=== PATIENT | male | born 1965 | race Caucasian/White ===

== ENCOUNTER → 2017-03-17 | Outpatient (CLI) | payer BC ==
[~2017-03-17] MED LIST: ACETAMINOPHEN-H1 TA2 PO; AMOXICILLIN500 MG PO; AMOXIL500 MG PO; BACTRIM DS 8001 TA1 PO; CATAFLAM50 MG PO; CEFUROXIME AXE250 MG PO; CILOXAN 5 ML5 M1 OT; CILOXAN 5 ML5 ML OT; CIPRO500 MG PO; CIPRODEX 0.3%-7.5 ML OT; CLARITIN10 MG PO; DAYPRO600 M1 PO; FIORICET 325 MG1 TAB PO; FLEXERIL10 MG PO; FLOMAX0.4 MG PO; HYDROCODONE BIT1 T11 PO; IBUPROFEN 30 M800 MG PO; KEFLEX500 MG PO; LISINOPRIL20 MG PO; MAGNESIUM OXID500 MG PO; MOTRIN800 MG PO; NAPROSYN500 MG PO; PROPRANOLOL10 MG PO; PROVENTIL0.09 MG/AC IH; ROBAXIN750 MG PO; SUDAFED60 MG PO; TOPAMAX2 MG; TOPAMAX25 M1 PO; TOPAMAX25 M3 PO; TRAMADOL50 MG PO; TRIMOX500 MG PO; VIBRAMYCIN100 MG PO; VITAMIN B2100 MG PO; ZANTAC 150150 MG PO; ZITHROMAX Z PA250 MG PO; ZYRTEC10 M1 PO; ZYRTEC10 MG PO
== END | disposition home or self-care (01) ==
LOC: RAD 17:07
DX: M79.671 Pain in right foot (principal)

== ENCOUNTER 2017-09-13 20:43 | Emergency (ER) | payer BC ==
[~2017-09-13] VITALS: Ht 175.2 cm; Wt 72.6 kg
[2017-09-13] MEDS ORDERED: MOBIC15 MG PO (20:45)
[2017-09-13 21:10] LABS: BASO # 0.1 10*3/uL (0.0-0.1); BASO % 0.5 % (0.0-1.0); EOS # 0.6 10*3/uL (0.0-0.4); EOS % 6.1 % (1.0-4.0); HEMATOCRIT 47.2 % (42.0-52.0); HEMOGLOBIN 16.3 g/dl (14.0-18.0); LYMPH # 2.6 10*3/uL (1.3-4.4); LYMPH % 27.8 % (27.0-41.0); MEAN CELL VOLUME 90.2 fl (80.0-94.0); MEAN CORPUSCULAR HGB 31.2 pg (27.0-31.0); MEAN CORPUSCULAR HGB CONC 34.5 g/dl (33.0-37.0); MEAN PLATELET VOLUME 9.6 fl (9.6-12.3); MONO # 0.9 10*3/uL (0.1-1.0); MONO % 9.2 % (3.0-9.0); NEUT # 5.3 10*3/uL (2.3-7.9); NEUT % 56.2 % (47.0-73.0); PLATELET COUNT AUTOMATED 198 10*3/uL (130-400); RED BLOOD COUNT 5.23 10*6/uL (4.50-5.90); RED CELL DISTRI WIDTH 13.2 % (0-14.5); WHITE BLOOD COUNT 9.4 10*3/uL (4.8-10.8)
[2017-09-13 21:25] LABS: ALBUMIN 3.7 gm/dl (3.1-4.5); ALKALINE PHOSPHATASE 90 U/L (45-117); BUN 28 mg/dl (7-24); CHLORIDE 107 mmol/L (98-107); CREATININE 1.33 mg/dL (0.70-1.30); SGOT/AST 21 IU/L (3-35); SGPT/ALT 33 U/L (12-78); SODIUM 140 mmol/L (136-145); TOTAL PROTEIN 6.8 gm/dL (6.4-8.2)
[2017-09-13 21:27] LABS: BILIRUBIN NEGATIVE (NEGATIVE); BLOOD 3+ (NEGATIVE); CLARITY CLOUDY (CLEAR); COLOR YELLOW (YELLOW); GLUCOSE NEGATIVE (NEGATIVE); KETONE NEGATIVE (NEGATIVE); LEUKO ESTERASE NEGATIVE (NEGATIVE); NITRITE NEGATIVE (NEGATIVE); UROBILINOGEN 0.2 E.U./dl (0.2-1.0)
[2017-09-13 21:45] LABS: BACTERIA 2+; EPITHELIAL CELLS 0-2; RBC TNTC rbc/hpf (0-2)
[2017-09-13] MEDS ORDERED: SEPTDS PO (22:51)
[2017-09-13] MEDS ORDERED: KETOROLAC10 MG PO (22:51)
== END 2017-09-13 22:59 | disposition home or self-care (01) ==
LOC: ED 20:43
PROVIDERS: Student in an Organized Health Care Education/Training Program
DX: N20.1 Calculus of ureter (principal); E78.5 Hyperlipidemia, unspecified; I10 Essential (primary) hypertension; G43.909 Migraine, unspecified, not intractable, without status migrainosus; F17.200 Nicotine dependence, unspecified, uncomplicated; Z88.8 Allergy status to other drugs, medicaments and biological substances; Z79.899 Other long term (current) drug therapy

== ENCOUNTER → 2017-09-16 | Outpatient (CLI) | payer BC ==
[~2017-09-16] MED LIST changes: +KETOROLAC10 MG PO; +MOBIC15 MG PO; +SEPTDS PO
[2017-09-16 11:53] LABS: BILIRUBIN NEGATIVE (NEGATIVE); BLOOD 2+ (NEGATIVE); CLARITY CLEAR (CLEAR); COLOR YELLOW (YELLOW); GLUCOSE NEGATIVE (NEGATIVE); KETONE NEGATIVE (NEGATIVE); LEUKO ESTERASE NEGATIVE (NEGATIVE); NITRITE NEGATIVE (NEGATIVE); SPECIFIC GRAVITY <= 1.005 (1.005-1.030); UROBILINOGEN 0.2 E.U./dl (0.2-1.0)
[2017-09-16 12:11] LABS: BACTERIA TRACE
[2017-09-16 12:22] LABS: ALBUMIN 3.7 gm/dl (3.1-4.5); ALKALINE PHOSPHATASE 93 U/L (45-117); BUN 15 mg/dl (7-24); CHLORIDE 108 mmol/L (98-107); CREATININE 0.94 mg/dL (0.70-1.30); POTASSIUM 4.2 mmol/L (3.5-5.1); SGOT/AST 22 IU/L (3-35); SGPT/ALT 33 U/L (12-78); SODIUM 139 mmol/L (136-145); T3 UPTAKE 31 % (31-39); THYROXINE (T4) TOTAL 9.3 ug/dl (4.5-12.1); TOTAL PROTEIN 7.2 gm/dL (6.4-8.2)
== END | disposition home or self-care (01) ==
LOC: LAB 11:22
PROVIDERS: Urology
DX: E83.50 Unspecified disorder of calcium metabolism (principal)

== ENCOUNTER → 2017-09-21 | Outpatient (CLI) | payer BC | END | disposition home or self-care (01) | LOC: US 02:10 | DX: N13.30 Unspecified hydronephrosis (principal) ==

== ENCOUNTER → 2017-09-29 | Outpatient (CLI) | payer BC | END | disposition home or self-care (01) | LOC: LAB 10:13 | PROVIDERS: Urology | DX: E83.50 Unspecified disorder of calcium metabolism (principal) ==

== ENCOUNTER → 2017-10-03 | Outpatient (CLI) | payer BC | END | disposition home or self-care (01) | LOC: LAB 14:39 | DX: D40.0 Neoplasm of uncertain behavior of prostate (principal) ==

== ENCOUNTER → 2017-10-22 | Outpatient (CLI) | payer BC | END | disposition home or self-care (01) | LOC: US 16:16 | DX: N13.30 Unspecified hydronephrosis (principal); N20.0 Calculus of kidney ==

== ENCOUNTER 2017-11-14 23:39 | Emergency (ER) | payer BC ==
[~2017-11-14] VITALS: Ht 175.2 cm; Wt 72.6 kg
[2017-11-14 23:55] LABS: BILIRUBIN NEGATIVE (NEGATIVE); BLOOD 2+ (NEGATIVE); CLARITY CLEAR (CLEAR); COLOR YELLOW (YELLOW); GLUCOSE NEGATIVE (NEGATIVE); KETONE NEGATIVE (NEGATIVE); LEUKO ESTERASE NEGATIVE (NEGATIVE); NITRITE NEGATIVE (NEGATIVE); PH 5.5 (5.0-9.0); SPECIFIC GRAVITY 1.025 (1.005-1.030); UROBILINOGEN 0.2 E.U./dl (0.2-1.0)
[2017-11-15 00:08] LABS: RBC 21-30 rbc/hpf (0-2)
[2017-11-15 00:32] LABS: BASO # 0.1 10*3/uL (0.0-0.1); BASO % 0.4 % (0.0-1.0); EOS # 0.4 10*3/uL (0.0-0.4); EOS % 2.6 % (1.0-4.0); HEMOGLOBIN 15.7 g/dl (14.0-18.0); LYMPH # 1.4 10*3/uL (1.3-4.4); LYMPH % 9.9 % (27.0-41.0); MEAN CELL VOLUME 91.4 fl (80.0-94.0); MEAN CORPUSCULAR HGB 30.5 pg (27.0-31.0); MEAN CORPUSCULAR HGB CONC 33.4 g/dl (33.0-37.0); MEAN PLATELET VOLUME 9.5 fl (9.6-12.3); MONO % 7.1 % (3.0-9.0); NEUT # 11.1 10*3/uL (2.3-7.9); NEUT % 79.6 % (47.0-73.0); PLATELET COUNT AUTOMATED 168 10*3/uL (130-400); RED BLOOD COUNT 5.14 10*6/uL (4.50-5.90); RED CELL DISTRI WIDTH 13.1 % (0-14.5); WHITE BLOOD COUNT 13.9 10*3/uL (4.8-10.8)
[2017-11-15 01:03] LABS: ALBUMIN 3.8 gm/dl (3.1-4.5); BUN 26 mg/dl (7-24); CHLORIDE 109 mmol/L (98-107); CREATININE 1.34 mg/dL (0.70-1.30); POTASSIUM 4.1 mmol/L (3.5-5.1); SGOT/AST 14 IU/L (3-35); SGPT/ALT 19 U/L (12-78); SODIUM 140 mmol/L (136-145)
[2017-11-15 01:05] LABS: ALKALINE PHOSPHATASE 82 U/L (45-117); TOTAL PROTEIN 6.8 gm/dL (6.4-8.2)
== END 2017-11-15 03:10 | disposition short-term general hospital (02) ==
LOC: ED 23:39
PROVIDERS: Emergency Medicine
DX: N13.8 Other obstructive and reflux uropathy (principal); N13.30 Unspecified hydronephrosis; E78.5 Hyperlipidemia, unspecified; I10 Essential (primary) hypertension; G43.909 Migraine, unspecified, not intractable, without status migrainosus; F17.200 Nicotine dependence, unspecified, uncomplicated; Z88.8 Allergy status to other drugs, medicaments and biological substances; Z79.899 Other long term (current) drug therapy; Z87.442 Personal history of urinary calculi

== ENCOUNTER → 2017-12-08 | Outpatient (CLI) | payer BC ==
[2017-12-08 16:52] LABS: BASO % 0.3 % (0.0-1.0); BILIRUBIN 1+ (NEGATIVE); BLOOD 3+ (NEGATIVE); CLARITY CLOUDY (CLEAR); EOS # 0.5 10*3/uL (0.0-0.4); EOS % 4.3 % (1.0-4.0); GLUCOSE NEGATIVE (NEGATIVE); HEMATOCRIT 41.5 % (42.0-52.0); HEMOGLOBIN 14.1 g/dl (14.0-18.0); KETONE NEGATIVE (NEGATIVE); LEUKO ESTERASE 2+ (NEGATIVE); LYMPH % 17.6 % (27.0-41.0); MEAN CELL VOLUME 90.2 fl (80.0-94.0); MEAN CORPUSCULAR HGB 30.7 pg (27.0-31.0); MEAN PLATELET VOLUME 9.5 fl (9.6-12.3); MONO # 0.7 10*3/uL (0.1-1.0); MONO % 6.3 % (3.0-9.0); NEUT # 8.2 10*3/uL (2.3-7.9); NEUT % 71.2 % (47.0-73.0); NITRITE POSITIVE (NEGATIVE); PH 6.5 (5.0-9.0); PLATELET COUNT AUTOMATED 249 10*3/uL (130-400); WHITE BLOOD COUNT 11.6 10*3/uL (4.8-10.8)
[2017-12-08 17:01] LABS: COLOR BROWN (YELLOW); RBC TNTC rbc/hpf (0-2)
[2017-12-08 17:29] LABS: ALBUMIN 3.9 gm/dl (3.1-4.5); ALKALINE PHOSPHATASE 86 U/L (45-117); BUN 27 mg/dl (7-24); CHLORIDE 107 mmol/L (98-107); CREATININE 1.36 mg/dL (0.70-1.30); POTASSIUM 3.9 mmol/L (3.5-5.1); SGOT/AST 28 IU/L (3-35); SGPT/ALT 30 U/L (12-78); SODIUM 139 mmol/L (136-145); THYROXINE (T4) TOTAL 10.2 ug/dl (4.5-12.1); TOTAL PROTEIN 7.2 gm/dL (6.4-8.2)
[2017-12-08 17:31] LABS: T3 UPTAKE 30 % (31-39)
== END | disposition home or self-care (01) ==
LOC: LAB 16:26
PROVIDERS: Urology
DX: N20.0 Calculus of kidney (principal); N20.1 Calculus of ureter; Z96.0 Presence of urogenital implants; Z79.899 Other long term (current) drug therapy

== ENCOUNTER 2018-01-17 20:24 | Emergency (ER) | payer BC, MEDICAID ==
[~2018-01-17] VITALS: Ht 175.2 cm; Wt 72.6 kg
[2018-01-17 21:03] LABS: BASO % 0.4 % (0.0-1.0); EOS # 0.4 10*3/uL (0.0-0.4); EOS % 4.6 % (1.0-4.0); HEMATOCRIT 42.6 % (42.0-52.0); HEMOGLOBIN 14.3 g/dl (14.0-18.0); LYMPH # 2.1 10*3/uL (1.3-4.4); LYMPH % 21.5 % (27.0-41.0); MEAN CELL VOLUME 92.2 fl (80.0-94.0); MEAN CORPUSCULAR HGB CONC 33.6 g/dl (33.0-37.0); MEAN PLATELET VOLUME 9.5 fl (9.6-12.3); MONO # 0.6 10*3/uL (0.1-1.0); MONO % 6.5 % (3.0-9.0); NEUT # 6.3 10*3/uL (2.3-7.9); NEUT % 66.5 % (47.0-73.0); PLATELET COUNT AUTOMATED 238 10*3/uL (130-400); RED BLOOD COUNT 4.62 10*6/uL (4.50-5.90); RED CELL DISTRI WIDTH 13.6 % (0-14.5); WHITE BLOOD COUNT 9.5 10*3/uL (4.8-10.8)
[2018-01-17 21:11] LABS: BILIRUBIN NEGATIVE (NEGATIVE); BLOOD 3+ (NEGATIVE); CLARITY CLOUDY (CLEAR); COLOR YELLOW (YELLOW); GLUCOSE NEGATIVE (NEGATIVE); KETONE NEGATIVE (NEGATIVE); LEUKO ESTERASE 1+ (NEGATIVE); NITRITE POSITIVE (NEGATIVE); SPECIFIC GRAVITY 1.015 (1.005-1.030); UROBILINOGEN 0.2 E.U./dl (0.2-1.0)
[2018-01-17 21:24] LABS: BACTERIA TRACE; RBC TNTC rbc/hpf (0-2); WBC 0-2 wbc/hpf (0-5)
[2018-01-17 21:29] LABS: ALBUMIN 3.7 gm/dl (3.1-4.5); BUN 20 mg/dl (7-24); CHLORIDE 109 mmol/L (98-107); CREATININE 1.09 mg/dL (0.70-1.30); SGOT/AST 21 IU/L (3-35); SGPT/ALT 40 U/L (12-78); SODIUM 140 mmol/L (136-145)
[2018-01-17 21:36] LABS: ALKALINE PHOSPHATASE 75 U/L (45-117)
[2018-01-17] MEDS ORDERED: OMNICEF300 MG PO (22:13)
== END 2018-01-17 22:49 | disposition home or self-care (01) ==
LOC: ED 20:24
PROVIDERS: Physician Assistant
DX: N20.0 Calculus of kidney (principal); F17.200 Nicotine dependence, unspecified, uncomplicated; Z88.8 Allergy status to other drugs, medicaments and biological substances; Z79.899 Other long term (current) drug therapy

== ENCOUNTER → 2018-02-15 | Outpatient (CLI) | payer BC ==
[~2018-02-15] MED LIST changes: +OMNICEF300 MG PO
== END | disposition home or self-care (01) ==
LOC: US 13:54
DX: N13.30 Unspecified hydronephrosis (principal); N20.0 Calculus of kidney

== ENCOUNTER → 2018-07-15 | Day surgery (SDC) | payer OTHER ==
[~2018-07-15] MED LIST changes: +CEFADROXIL500 M1 PO; +MUCINEX DM 30/61 TAB PO; +Motrin,Rufen800 MG PO; +ZITHROMAX250 MG PO
== END | disposition home or self-care (01) ==
LOC: SDC 07-13 08:00
DX: Z12.11 Encounter for screening for malignant neoplasm of colon (principal); Z53.8 Procedure and treatment not carried out for other reasons

== ENCOUNTER 2018-07-23 20:42 | Emergency (ER) | payer OTHER ==
[~2018-07-23] VITALS: Ht 175.2 cm; Wt 72.6 kg
[~2018-07-23 20:42] MED LIST changes: -CEFADROXIL500 M1 PO; -MUCINEX DM 30/61 TAB PO; -Motrin,Rufen800 MG PO; -ZITHROMAX250 MG PO
[2018-07-23] MEDS ORDERED: Motrin,Rufen800 MG PO (21:42)
[2018-07-23] MEDS ORDERED: CEFADROXIL500 M1 PO (21:42)
== END 2018-07-23 22:00 | disposition home or self-care (01) ==
LOC: ED 20:42
DX: L03.012 Cellulitis of left finger (principal); F17.200 Nicotine dependence, unspecified, uncomplicated; Z79.899 Other long term (current) drug therapy; Z88.8 Allergy status to other drugs, medicaments and biological substances

== ENCOUNTER 2018-07-31 12:24 | Emergency (ER) | payer OTHER ==
[~2018-07-31] VITALS: Wt 86.2 kg
[~2018-07-31 12:24] MED LIST changes: +CEFADROXIL500 M1 PO; +Motrin,Rufen800 MG PO
[2018-07-31] MEDS ORDERED: MUCINEX DM 30/61 TAB PO (12:59)
== END 2018-07-31 14:02 | disposition home or self-care (01) ==
LOC: ED 12:24
DX: J06.9 Acute upper respiratory infection, unspecified (principal); G43.909 Migraine, unspecified, not intractable, without status migrainosus; E78.5 Hyperlipidemia, unspecified; I10 Essential (primary) hypertension; F17.200 Nicotine dependence, unspecified, uncomplicated; Z88.8 Allergy status to other drugs, medicaments and biological substances; Z79.899 Other long term (current) drug therapy

== ENCOUNTER 2018-08-09 12:07 | Emergency (ER) | payer OTHER ==
[~2018-08-09] VITALS: Ht 175.2 cm; Wt 72.6 kg
[~2018-08-09 12:07] MED LIST changes: +MUCINEX DM 30/61 TAB PO
[2018-08-09] MEDS ORDERED: ZITHROMAX250 MG PO (12:25)
== END 2018-08-09 12:35 | disposition home or self-care (01) ==
LOC: ED 12:07
DX: J32.9 Chronic sinusitis, unspecified (principal); F17.200 Nicotine dependence, unspecified, uncomplicated; Z88.8 Allergy status to other drugs, medicaments and biological substances; Z79.899 Other long term (current) drug therapy

== ENCOUNTER → 2018-12-25 | Outpatient (CLI) | payer OTHER ==
[~2018-12-25] MED LIST changes: +PROAIR HFA8.5 GM INH; +ROBITUSSIN DM 105 ML PO; +ZITHROMAX250 MG PO
[2018-12-25 08:38] LABS: BASO % 0.3 % (0.0-1.0); EOS # 0.2 10*3/uL (0.0-0.4); EOS % 2.9 % (1.0-4.0); HEMATOCRIT 49.2 % (42.0-52.0); HEMOGLOBIN 16.6 g/dl (14.0-18.0); LYMPH # 1.4 10*3/uL (1.3-4.4); MEAN CELL VOLUME 92.5 fl (80.0-94.0); MEAN CORPUSCULAR HGB 31.2 pg (27.0-31.0); MEAN CORPUSCULAR HGB CONC 33.7 g/dl (33.0-37.0); MEAN PLATELET VOLUME 9.5 fl (9.6-12.3); MONO # 0.6 10*3/uL (0.1-1.0); MONO % 9.6 % (3.0-9.0); NEUT # 4.2 10*3/uL (2.3-7.9); NEUT % 64.6 % (47.0-73.0); PLATELET COUNT AUTOMATED 203 10*3/uL (130-400); RED BLOOD COUNT 5.32 10*6/uL (4.50-5.90); RED CELL DISTRI WIDTH 12.8 % (0-14.5); WHITE BLOOD COUNT 6.6 10*3/uL (4.8-10.8)
[2018-12-25 09:08] LABS: ALBUMIN 4.4 gm/dl (3.1-4.5); ALKALINE PHOSPHATASE 77 U/L (45-117); BUN 27 mg/dl (7-24); CHLORIDE 108 mmol/L (98-107); CHOLESTEROL 161 mg/dL (<200); HDL CHOLESTEROL 43 mg/dl (40-60); LDL CHOLESTEROL 101 mg/dL (9-159); POTASSIUM 4.3 mmol/L (3.5-5.1); SGOT/AST 9 IU/L (3-35); SGPT/ALT 20 U/L (12-78); SODIUM 139 mmol/L (136-145); TOTAL PROTEIN 7.6 gm/dL (6.4-8.2); TRIGLYCERIDES 87 mg/dl (<150); VLDL CHOLESTEROL 17 mg/dL (6-40)
== END | disposition home or self-care (01) ==
LOC: LAB 08:15
PROVIDERS: Nurse Practitioner Family
DX: I10 Essential (primary) hypertension (principal); E78.2 Mixed hyperlipidemia; R73.03 Prediabetes

== ENCOUNTER 2019-01-08 18:57 | Emergency (ER) | payer OTHER ==
[~2019-01-08] VITALS: Ht 175.2 cm; Wt 77.1 kg
--- NOTE | ~2019-01-08 | EKG ---
[place], [place] ELECTROCARDIOGRAM REPORT NAME: DEION MILLER III UNIT #: [id number] ROOM: DOCTOR: EPIPHANY DRAFT REPORT BIRTHDATE: [birth year] [facility] Test Date: 2019-01-08 Test Time: 19:52:01 Pat Name: DEION MILLER Department: Room: Gender: Corporate Planning Manager: Danuta Tsai : 1965 Requested By: LORENZO ESPOSITO Order Number: [id number] Reading MD: Mohinder Sandoval MD Measurements Intervals [place] Rate: 81 P: 44 NE: 175 QRS: 99 QRSD: 96 T: 28 QT: 364 QTc: 423 Interpretive Statements Sinus rhythm Borderline right axis deviation Borderline low voltage, extremity leads Anteroseptal infarct, old Minimal ST elevation, inferior leads No previous ECG available for comparison Electronically Signed On 01-09-2019 7:47:50 PDT by Mohinder Sandoval MD CM:EKGRPT:ELECTROCARDIOGRAM REPORT 51 6 LORENZO ESPOSITO EPIPHANY DRAFT REPORT LORENZO ESPOSITO
[~2019-01-08 18:57] MED LIST changes: -PROAIR HFA8.5 GM INH; -ROBITUSSIN DM 105 ML PO
[2019-01-08] MEDS ORDERED: ROBITUSSIN DM 105 ML PO (19:59)
[2019-01-08] MEDS ORDERED: PROAIR HFA8.5 GM INH (19:59)
[2019-01-08] MEDS ORDERED: ZITHROMAX250 MG PO (19:59)
== END 2019-01-08 20:11 | disposition home or self-care (01) ==
LOC: ED 18:57
DX: J20.9 Acute bronchitis, unspecified (principal); F17.200 Nicotine dependence, unspecified, uncomplicated; Z88.8 Allergy status to other drugs, medicaments and biological substances; Z79.899 Other long term (current) drug therapy

== ENCOUNTER → 2019-03-12 | Outpatient (CLI) | payer OTHER ==
[~2019-03-12] MED LIST changes: +PROAIR HFA8.5 GM INH; +ROBITUSSIN DM 105 ML PO
[2019-03-12 11:10] LABS: HEMATOCRIT 47.9 % (42.0-52.0); HEMOGLOBIN 16.1 g/dl (14.0-18.0); MEAN CELL VOLUME 91.2 fl (80.0-94.0); MEAN CORPUSCULAR HGB 30.7 pg (27.0-31.0); MEAN CORPUSCULAR HGB CONC 33.6 g/dl (33.0-37.0); MEAN PLATELET VOLUME 10.5 fl (9.6-12.3); RED BLOOD COUNT 5.25 10*6/uL (4.50-5.90); RED CELL DISTRI WIDTH 13.2 % (0-14.5); WHITE BLOOD COUNT 6.1 10*3/uL (4.8-10.8)
[2019-03-12 11:21] LABS: ALKALINE PHOSPHATASE 73 U/L (45-117); BUN 32 mg/dl (7-24); CHLORIDE 110 mmol/L (98-107); CHOLESTEROL 143 mg/dL (<200); CREATININE 1.38 mg/dL (0.70-1.30); HDL CHOLESTEROL 38 mg/dl (40-60); LDL CHOLESTEROL 89 mg/dL (9-159); POTASSIUM 3.9 mmol/L (3.5-5.1); SGOT/AST 16 IU/L (3-35); SGPT/ALT 23 U/L (12-78); SODIUM 141 mmol/L (136-145); TOTAL PROTEIN 7.2 gm/dL (6.4-8.2); TRIGLYCERIDES 79 mg/dl (<150); VLDL CHOLESTEROL 16 mg/dL (6-40)
== END | disposition home or self-care (01) ==
LOC: LAB 10:09
PROVIDERS: Nurse Practitioner Family
DX: E78.2 Mixed hyperlipidemia (principal); I10 Essential (primary) hypertension; R73.03 Prediabetes

== ENCOUNTER → 2019-09-23 | Outpatient (CLI) | payer OTHER ==
[2019-09-23 13:45] LABS: BASO # 0.1 10*3/uL (0.0-0.1); BASO % 0.6 % (0.0-1.0); EOS # 0.2 10*3/uL (0.0-0.4); EOS % 2.4 % (1.0-4.0); HEMATOCRIT 49.8 % (42.0-52.0); LYMPH # 2.1 10*3/uL (1.3-4.4); LYMPH % 24.2 % (27.0-41.0); MEAN CELL VOLUME 90.2 fl (80.0-94.0); MEAN CORPUSCULAR HGB 30.6 pg (27.0-31.0); MEAN CORPUSCULAR HGB CONC 33.9 g/dl (33.0-37.0); MEAN PLATELET VOLUME 9.5 fl (9.6-12.3); MONO # 0.7 10*3/uL (0.1-1.0); MONO % 8.6 % (3.0-9.0); NEUT # 5.5 10*3/uL (2.3-7.9); NEUT % 63.9 % (47.0-73.0); PLATELET COUNT AUTOMATED 203 10*3/uL (130-400); RED BLOOD COUNT 5.52 10*6/uL (4.50-5.90); RED CELL DISTRI WIDTH 13.2 % (0-14.5); WHITE BLOOD COUNT 8.6 10*3/uL (4.8-10.8)
[2019-09-23 14:03] LABS: ALKALINE PHOSPHATASE 77 U/L (45-117); BUN 21 mg/dl (7-24); CHLORIDE 108 mmol/L (98-107); SGOT/AST 12 IU/L (3-35); SGPT/ALT 32 U/L (12-78); SODIUM 138 mmol/L (136-145); TOTAL PROTEIN 7.4 gm/dL (6.4-8.2)
== END | disposition home or self-care (01) ==
LOC: CT 13:00 → LAB 13:06
PROVIDERS: Nurse Practitioner Family
DX: Z12.5 Encounter for screening for malignant neoplasm of prostate (principal); N20.0 Calculus of kidney; I10 Essential (primary) hypertension

== ENCOUNTER → 2019-10-20 | Outpatient (CLI) | payer OTHER ==
[2019-10-20 13:02] LABS: BASO % 0.4 % (0.0-1.0); EOS # 0.2 10*3/uL (0.0-0.4); EOS % 1.6 % (1.0-4.0); HEMATOCRIT 48.6 % (42.0-52.0); LYMPH # 1.9 10*3/uL (1.3-4.4); LYMPH % 19.7 % (27.0-41.0); MEAN CELL VOLUME 89.3 fl (80.0-94.0); MEAN CORPUSCULAR HGB 30.5 pg (27.0-31.0); MEAN CORPUSCULAR HGB CONC 34.2 g/dl (33.0-37.0); MEAN PLATELET VOLUME 9.4 fl (9.6-12.3); MONO # 0.7 10*3/uL (0.1-1.0); MONO % 7.1 % (3.0-9.0); NEUT # 6.6 10*3/uL (2.3-7.9); NEUT % 70.8 % (47.0-73.0); PLATELET COUNT AUTOMATED 231 10*3/uL (130-400); RED BLOOD COUNT 5.44 10*6/uL (4.50-5.90); WHITE BLOOD COUNT 9.4 10*3/uL (4.8-10.8)
[2019-10-20 13:16] LABS: BILIRUBIN NEGATIVE (NEGATIVE); BLOOD TRACE-LYSED (NEGATIVE); CLARITY CLEAR (CLEAR); COLOR STRAW (YELLOW); GLUCOSE NEGATIVE (NEGATIVE); KETONE NEGATIVE (NEGATIVE); LEUKO ESTERASE 2+ (NEGATIVE); NITRITE NEGATIVE (NEGATIVE); PH 6.5 (5.0-9.0); SPECIFIC GRAVITY 1.005 (1.005-1.030); UROBILINOGEN 0.2 E.U./dl (0.2-1.0)
[2019-10-20 13:17] LABS: BACTERIA 1+; WBC 16-20 wbc/hpf (0-5)
[2019-10-20 13:18] LABS: ALKALINE PHOSPHATASE 76 U/L (45-117); BUN 32 mg/dl (7-24); CHLORIDE 104 mmol/L (98-107); CREATININE 1.45 mg/dL (0.70-1.30); SGOT/AST 13 IU/L (3-35); SGPT/ALT 40 U/L (12-78); SODIUM 132 mmol/L (136-145); TOTAL PROTEIN 7.8 gm/dL (6.4-8.2)
[2019-10-20 13:21] LABS: T3 UPTAKE 32 % (31-39)
== END | disposition home or self-care (01) ==
LOC: LAB 11:30
PROVIDERS: Urology
DX: N20.0 Calculus of kidney (principal); R31.9 Hematuria, unspecified

== ENCOUNTER → 2019-10-21 | Outpatient (CLI) | payer OTHER | END | disposition home or self-care (01) | LOC: LAB 13:49 | PROVIDERS: Urology | DX: N20.0 Calculus of kidney (principal); R31.9 Hematuria, unspecified ==

== ENCOUNTER 2019-11-19 08:48 | Emergency (ER) | payer OTHER ==
[~2019-11-19] VITALS: Ht 175.2 cm; Wt 74.8 kg
[2019-11-19 09:27] LABS: BASO % 0.2 % (0.0-1.0); EOS % 0.1 % (1.0-4.0); HEMATOCRIT 45.9 % (42.0-52.0); LYMPH # 1.8 10*3/uL (1.3-4.4); LYMPH % 11.2 % (27.0-41.0); MEAN CELL VOLUME 86.9 fl (80.0-94.0); MEAN CORPUSCULAR HGB 29.7 pg (27.0-31.0); MEAN CORPUSCULAR HGB CONC 34.2 g/dl (33.0-37.0); MEAN PLATELET VOLUME 9.3 fl (9.6-12.3); MONO % 5.9 % (3.0-9.0); NEUT # 13.5 10*3/uL (2.3-7.9); NEUT % 82.2 % (47.0-73.0); PLATELET COUNT AUTOMATED 260 10*3/uL (130-400); RED BLOOD COUNT 5.28 10*6/uL (4.50-5.90); RED CELL DISTRI WIDTH 12.9 % (0-14.5); WHITE BLOOD COUNT 16.5 10*3/uL (4.8-10.8)
[2019-11-19 09:42] LABS: ALBUMIN 3.7 gm/dl (3.1-4.5); ALKALINE PHOSPHATASE 76 U/L (45-117); BUN 20 mg/dl (7-24); CHLORIDE 107 mmol/L (98-107); CREATININE 1.07 mg/dL (0.70-1.30); POTASSIUM 3.8 mmol/L (3.5-5.1); SGOT/AST 12 IU/L (3-35); SGPT/ALT 27 U/L (12-78); SODIUM 136 mmol/L (136-145); TOTAL PROTEIN 7.3 gm/dL (6.4-8.2)
== END 2019-11-19 13:29 | disposition home or self-care (01) ==
LOC: ED 08:48
PROVIDERS: Physician Assistant
DX: G43.909 Migraine, unspecified, not intractable, without status migrainosus (principal); Z79.899 Other long term (current) drug therapy

== ENCOUNTER 2019-11-26 23:28 | Emergency (ER) | payer OTHER ==
[~2019-11-26] VITALS: Ht 175.2 cm; Wt 72.6 kg
[2019-11-27 01:03] LABS: BASO % 0.3 % (0.0-1.0); EOS # 0.1 10*3/uL (0.0-0.4); EOS % 0.9 % (1.0-4.0); HEMATOCRIT 47.4 % (42.0-52.0); LYMPH # 1.9 10*3/uL (1.3-4.4); LYMPH % 12.9 % (27.0-41.0); MEAN CELL VOLUME 88.6 fl (80.0-94.0); MEAN CORPUSCULAR HGB 30.5 pg (27.0-31.0); MEAN CORPUSCULAR HGB CONC 34.4 g/dl (33.0-37.0); MEAN PLATELET VOLUME 9.2 fl (9.6-12.3); MONO # 0.9 10*3/uL (0.1-1.0); MONO % 6.3 % (3.0-9.0); NEUT # 11.5 10*3/uL (2.3-7.9); NEUT % 78.9 % (47.0-73.0); PLATELET COUNT AUTOMATED 234 10*3/uL (130-400); RED BLOOD COUNT 5.35 10*6/uL (4.50-5.90); RED CELL DISTRI WIDTH 13.2 % (0-14.5); WHITE BLOOD COUNT 14.5 10*3/uL (4.8-10.8)
[2019-11-27 01:17] LABS: BUN 19 mg/dl (7-24); CHLORIDE 105 mmol/L (98-107); CREATININE 1.27 mg/dL (0.70-1.30); POTASSIUM 3.7 mmol/L (3.5-5.1); SODIUM 136 mmol/L (136-145)
[2019-11-27] MEDS ORDERED: TOPAMAX25 M3 PO ×2 (03:17→03:18)
[2019-11-27] MEDS ORDERED: CIPRO250 MG PO (03:27)
== END 2019-11-27 03:43 | disposition home or self-care (01) ==
LOC: ED 23:28
PROVIDERS: Emergency Medicine Emergency Medical Services
DX: G43.909 Migraine, unspecified, not intractable, without status migrainosus (principal); H60.90 Unspecified otitis externa, unspecified ear; E78.5 Hyperlipidemia, unspecified; Z88.8 Allergy status to other drugs, medicaments and biological substances; Z79.899 Other long term (current) drug therapy

== ENCOUNTER 2019-12-15 19:27 | Emergency (ER) | payer OTHER ==
[~2019-12-15] VITALS: Ht 172.7 cm; Wt 77.1 kg
[~2019-12-15 19:27] MED LIST changes: +CIPRO250 MG PO
[2019-12-15 20:12] LABS: BASO % 0.2 % (0.0-1.0); EOS # 0.1 10*3/uL (0.0-0.4); EOS % 1.3 % (1.0-4.0); LYMPH # 1.4 10*3/uL (1.3-4.4); LYMPH % 12.7 % (27.0-41.0); MEAN CELL VOLUME 88.7 fl (80.0-94.0); MEAN CORPUSCULAR HGB 30.5 pg (27.0-31.0); MEAN CORPUSCULAR HGB CONC 34.4 g/dl (33.0-37.0); MEAN PLATELET VOLUME 9.3 fl (9.6-12.3); MONO # 0.8 10*3/uL (0.1-1.0); NEUT # 8.4 10*3/uL (2.3-7.9); NEUT % 78.3 % (47.0-73.0); PLATELET COUNT AUTOMATED 205 10*3/uL (130-400); RED BLOOD COUNT 4.85 10*6/uL (4.50-5.90); RED CELL DISTRI WIDTH 13.2 % (0-14.5); WHITE BLOOD COUNT 10.7 10*3/uL (4.8-10.8)
[2019-12-15 20:27] LABS: ALBUMIN 3.8 gm/dl (3.1-4.5); ALKALINE PHOSPHATASE 56 U/L (45-117); BUN 21 mg/dl (7-24); CHLORIDE 109 mmol/L (98-107); CREATININE 1.26 mg/dL (0.70-1.30); POTASSIUM 3.5 mmol/L (3.5-5.1); SGOT/AST 11 IU/L (3-35); SGPT/ALT 22 U/L (12-78); SODIUM 138 mmol/L (136-145); TOTAL PROTEIN 6.8 gm/dL (6.4-8.2)
[2019-12-15 20:42] LABS: BILIRUBIN NEGATIVE (NEGATIVE); BLOOD TRACE-LYSED (NEGATIVE); CLARITY CLEAR (CLEAR); COLOR YELLOW (YELLOW); GLUCOSE NEGATIVE (NEGATIVE); KETONE NEGATIVE (NEGATIVE); SPECIFIC GRAVITY 1.025 (1.005-1.030)
[2019-12-15 20:43] LABS: LEUKO ESTERASE 2+ (NEGATIVE); NITRITE NEGATIVE (NEGATIVE); UROBILINOGEN 0.2 E.U./dl (0.2-1.0)
[2019-12-15 20:50] LABS: RBC 0-2 rbc/hpf (0-2); WBC 21-30 wbc/hpf (0-5)
[2019-12-15 20:51] LABS: BACTERIA 1+
[2019-12-15] MEDS ORDERED: CEPHALEXIN500 M1 PO (22:52)
== END 2019-12-15 23:33 | disposition home or self-care (01) ==
LOC: ED 19:27
PROVIDERS: Emergency Medicine
DX: N20.0 Calculus of kidney (principal); N39.0 Urinary tract infection, site not specified; G43.909 Migraine, unspecified, not intractable, without status migrainosus; E78.5 Hyperlipidemia, unspecified; I10 Essential (primary) hypertension; Z88.8 Allergy status to other drugs, medicaments and biological substances; Z79.899 Other long term (current) drug therapy

== ENCOUNTER 2019-12-28 10:11 | Observation (INO) | payer OTHER ==
[~2019-12-28] VITALS: Ht 175.3 cm; Wt 69.4 kg
[~2019-12-28 10:11] MED LIST changes: +CEPHALEXIN500 M1 PO
[2019-12-28 10:24] VITALS: BP 134/81
[2019-12-28 10:56] LABS: BASO % 0.4 % (0.0-1.0); EOS # 0.3 10*3/uL (0.0-0.4); EOS % 2.5 % (1.0-4.0); HEMATOCRIT 46.2 % (42.0-52.0); LYMPH # 1.6 10*3/uL (1.3-4.4); LYMPH % 15.2 % (27.0-41.0); MEAN CELL VOLUME 87.3 fl (80.0-94.0); MEAN CORPUSCULAR HGB 30.1 pg (27.0-31.0); MEAN CORPUSCULAR HGB CONC 34.4 g/dl (33.0-37.0); MEAN PLATELET VOLUME 9.6 fl (9.6-12.3); MONO # 0.8 10*3/uL (0.1-1.0); MONO % 7.3 % (3.0-9.0); NEUT # 7.6 10*3/uL (2.3-7.9); PLATELET COUNT AUTOMATED 222 10*3/uL (130-400); RED BLOOD COUNT 5.29 10*6/uL (4.50-5.90); RED CELL DISTRI WIDTH 13.1 % (0-14.5); WHITE BLOOD COUNT 10.2 10*3/uL (4.8-10.8)
[2019-12-28 10:57] LABS: ACT PARTIAL THROMBO TIME 28.9 SECONDS (20.0-32.1)
[2019-12-28 11:01] LABS: ALKALINE PHOSPHATASE 83 U/L (45-117); BUN 32 mg/dl (7-24); CHLORIDE 103 mmol/L (98-107); CREATININE 2.12 mg/dL (0.70-1.30); LIPASE 79 U/L (73-393); POTASSIUM 4.4 mmol/L (3.5-5.1); SGOT/AST 16 IU/L (3-35); SGPT/ALT 25 U/L (12-78); SODIUM 132 mmol/L (136-145); TOTAL PROTEIN 7.7 gm/dL (6.4-8.2)
[2019-12-28 11:02] LABS: TROPONIN I < 0.015 ng/ml (<0.045)
[2019-12-28] MEDS ORDERED: LEVOFLOXACIN500 MG PO (12:50)
--- NOTE | 2019-12-28 14:00 | NUR ---
WOUND PICTURES TAKEN AND CAMERA PLACED IN BASKET. NURSE REPORT WAS GIVEN TO ABHISHEK CARRILLO.
[2019-12-28 14:15] VITALS: BP 128/93
--- NOTE | 2019-12-28 14:15 | NUR ---
A 54, admitted to , under the services of FABIÁN Valero DO with a diagnosis of DIZZINESS, ACUTE RENAL FAILURE. Chief complaint is DIZZINESS. Patient arrived via stretcher from ER. Monitor applied. Initial assessment completed. Vital signs taken and recorded. FABIÁN VALERO DO notified of admission to the unit. Orders received. See assessment for past medical history, medications and allergies. Patient and/or family oriented to unit. [address] visitation policy reviewed. Clothing/patient valuable form completed. ABHISHEK SMITH
[2019-12-28] MEDS ORDERED: LEVOCETIRIZINE D5 M1 PO (14:23)
[2019-12-28] MEDS ORDERED: BUSPAR15 MG PO (14:23)
[2019-12-28] MEDS ORDERED: SIMVASTATIN40 MG PO (14:24)
[2019-12-28] MEDS ORDERED: TAMSULOSIN HCL0.4 MG PO (14:25)
[2019-12-28] MEDS ORDERED: CIPROFLOXACIN250 MG PO (14:26)
[2019-12-28 16:00] VITALS: BP 147/98
--- NOTE | 2019-12-28 19:00 | NUR ---
REPORT RECEIVED. PT LYING IN BED AT THIS TIME. VOICES NO COMPLAINTS. IV FLUIDS INFUSING WITHOUT DIFFICULTY. CALL LIGHT IN REACH
[2019-12-28 20:00] VITALS: BP 136/85
--- NOTE | 2019-12-28 21:00 | NUR ---
PT SLEEPING AT THIS TIME
--- NOTE | 2019-12-28 23:42 | NUR ---
PT PUT CALL LIGHT ON STATING THAT HE HAD A "KILLER HEADACHE" AND WAS REQUESTING PAIN MEDICATION. NURSE PULLS TYLENOL AND BRINGS IT TO ROOM. UPON ENTRY, PT ASLEEP. PT AWAKENED AND GIVEN TYLENOL AT THIS TIME. PT ASLEEP BEFORE NURSE LEFT ROOM.
[2019-12-29] VITALS: BP 164/85
--- NOTE | 2019-12-29 00:42 | NUR ---
TYLENOL APPEARS EFFECTIVE, PT ASLEEP
--- NOTE | 2019-12-29 03:00 | NUR ---
PT SLEEPING AT THIS TIME. RESPIRATIONS EASY. CALL LIGHT IN REACH
--- NOTE | 2019-12-29 05:26 | NUR ---
PT SLEEPING. IV FLUIDS INFUSING WITHOUT DIFFICULTY
--- NOTE | 2019-12-29 07:00 | NUR ---
ARRIVED ON SHIFT, REPORT RECEIVED FROM OFF GOING NURSE, ASSUMED CARE OF PATIENT.
[2019-12-29 07:09] LABS: BASO % 0.5 % (0.0-1.0); EOS # 0.3 10*3/uL (0.0-0.4); EOS % 4.5 % (1.0-4.0); HEMATOCRIT 44.9 % (42.0-52.0); LYMPH # 1.6 10*3/uL (1.3-4.4); LYMPH % 21.7 % (27.0-41.0); MEAN CELL VOLUME 89.3 fl (80.0-94.0); MEAN CORPUSCULAR HGB 30.4 pg (27.0-31.0); MEAN CORPUSCULAR HGB CONC 34.1 g/dl (33.0-37.0); MEAN PLATELET VOLUME 9.7 fl (9.6-12.3); MONO # 0.7 10*3/uL (0.1-1.0); MONO % 9.6 % (3.0-9.0); NEUT # 4.7 10*3/uL (2.3-7.9); NEUT % 63.3 % (47.0-73.0); PLATELET COUNT AUTOMATED 204 10*3/uL (130-400); RED BLOOD COUNT 5.03 10*6/uL (4.50-5.90); RED CELL DISTRI WIDTH 13.3 % (0-14.5); WHITE BLOOD COUNT 7.4 10*3/uL (4.8-10.8)
[2019-12-29 07:19] LABS: ACT PARTIAL THROMBO TIME 28.8 SECONDS (20.0-32.1)
--- NOTE | 2019-12-29 07:30 | NUR ---
INTRODUCED SELF TO PATIENT, BED IN LOW POSITION WHEEL LOCKS ENGAGED, SIDE RAILS UP X 2 FOR TURNING AND REPOSITIONING, BED ALARM ON, CALL LIGHT WITHIN REACH NO NEEDS VOICED AT THIS TIME. WHITE BOARD UPDATED.
--- NOTE | 2019-12-29 07:36 | NUR ---
Shift chart check completed.
[2019-12-29 07:41] LABS: ALBUMIN 3.4 gm/dl (3.1-4.5); ALKALINE PHOSPHATASE 72 U/L (45-117); BUN 23 mg/dl (7-24); CHLORIDE 106 mmol/L (98-107); CHOLESTEROL 122 mg/dL (<200); CREATININE 1.34 mg/dL (0.70-1.30); FREE T4 1.07 ng/dl (0.76-1.46); HDL CHOLESTEROL 35 mg/dl (40-60); LDL CHOLESTEROL 60 mg/dL (9-159); POTASSIUM 4.2 mmol/L (3.5-5.1); SGOT/AST 14 IU/L (3-35); SGPT/ALT 21 U/L (12-78); SODIUM 135 mmol/L (136-145); TOTAL PROTEIN 6.8 gm/dL (6.4-8.2); TRIGLYCERIDES 137 mg/dl (<150); VLDL CHOLESTEROL 27 mg/dL (6-40)
[2019-12-29 08:00] VITALS: BP 148/87
[2019-12-29 08:08] LABS: VITAMIN D, 25-HYDROXY 56.7 ng/mL (30-100)
--- NOTE | 2019-12-29 08:37 | NUR ---
PATIENT C/O OF MIGRAINE HEADACHE, MEDICATED WITH TYLENOL ORDERED PRN. WHITE BOARD UPDATED WITH NEXT AVAILABLE DOSE.
--- NOTE | 2019-12-29 08:43 | NUR ---
PHYSICAL THERAPY Screen received, pt admitted for dizziness, acute renal failure. Please consult PT if pts functional status declines from baseline. Thank you. Cosme Verdugo SPT Mariya Lantigua PT
--- NOTE | 2019-12-29 09:00 | NUR ---
Technical Delivery Manager in to talk to patient. Patient states lives at home with mom. There are 5 steps in the home. Physician: ute edmondson [facility]acy: [facility] [place] [facility]: none Patient's level of ADLs: INDEPENDENT Patient has working utilities: all working DME: none Follow-up physician's appointment after d/c: will be made by hospitalist nurse director upon discharge Does patient want to access PORTAL?: no Discharge plan discussed with patient he states she lives at home with his mom, he is independent in adls and ambulation works, drives, he states he will return homn discharged and denies any home needs, case management will follow. JI SENIOR
--- NOTE | 2019-12-29 09:38 | NUR ---
PATIENT REPORTS SOME RELEIF FROM TYLENOL GIVEN X 1 HOUR AGO RATES PAIN 3/10
[2019-12-29 12:00] VITALS: BP 134/91
[2019-12-29 16:00] VITALS: BP 136/83
--- NOTE | 2019-12-29 19:00 | NUR ---
REPORT RECEIVED. PT LYING IN BED, VOICES NO COMPLAINTS. CALL LIGHT IN REACH
[2019-12-29 20:00] VITALS: BP 121/75
--- NOTE | 2019-12-29 21:00 | NUR ---
PT LYING IN BED. NO COMPLAINTS. CALL LIGHT IN REACH
--- NOTE | 2019-12-29 23:00 | NUR ---
PT ASLEEP. IV FLUIDS INFUSING WITHOUT DIFFICULTY. RESPIRATIONS EASY.
[2019-12-30] VITALS: BP 106/70
--- NOTE | 2019-12-30 02:00 | NUR ---
PT ASLEEP AT THIS TIME. IV FLUIDS INFUSING WITHOUT DIFFICULTY. CALL LIGHT IN REACH
[2019-12-30 06:21] LABS: BUN 17 mg/dl (7-24); CHLORIDE 110 mmol/L (98-107); CREATININE 1.11 mg/dL (0.70-1.30); SODIUM 139 mmol/L (136-145)
[2019-12-30 06:31] LABS: BASO % 0.5 % (0.0-1.0); EOS # 0.3 10*3/uL (0.0-0.4); EOS % 3.5 % (1.0-4.0); LYMPH # 1.4 10*3/uL (1.3-4.4); LYMPH % 18.6 % (27.0-41.0); MEAN CELL VOLUME 90.1 fl (80.0-94.0); MEAN CORPUSCULAR HGB 30.4 pg (27.0-31.0); MEAN CORPUSCULAR HGB CONC 33.8 g/dl (33.0-37.0); MEAN PLATELET VOLUME 9.7 fl (9.6-12.3); MONO # 0.8 10*3/uL (0.1-1.0); MONO % 10.3 % (3.0-9.0); NEUT # 5.1 10*3/uL (2.3-7.9); NEUT % 66.6 % (47.0-73.0); PLATELET COUNT AUTOMATED 182 10*3/uL (130-400); RED BLOOD COUNT 4.44 10*6/uL (4.50-5.90); RED CELL DISTRI WIDTH 13.2 % (0-14.5); WHITE BLOOD COUNT 7.7 10*3/uL (4.8-10.8)
--- NOTE | 2019-12-30 07:32 | NUR ---
24 HR CHART CHECK COMPLETE.
--- NOTE | 2019-12-30 07:45 | NUR ---
IN TO SEE PT AT THIS TIME. HE STATES HIS DIZZINESS HAS IMPROVED AND HE IS FEELING WELL. NO OTHER S/S OF DISTRESS NOTED. RESPS ARE EASY AND NONLABORED. BED LOW, CALL LIGHT WITHIN REACH. WILL CONTINUE TO MONITOR.
[2019-12-30 08:00] VITALS: BP 135/89
--- NOTE | 2019-12-30 09:15 | NUR ---
PT MEDICATED WITH PRN ANTIVERT FOR C/O DIZZINESS. WILL CONTINUE TO MONITOR.
[2019-12-30] MEDS ORDERED: NICODERM CQ1 EAC2 T (10:02)
[2019-12-30] MEDS ORDERED: MECLIZINE HCL25 M2 PO (10:02)
--- NOTE | 2019-12-30 10:45 | NUR ---
PT REFUSING DISCHARGE PHOTOS AT THIS TIME STATING, "THEY'RE ONLY SCRATCHES"
--- NOTE | 2019-12-30 11:00 | NUR ---
Discharge instructions reviewed with patient/family. Patient receptive and verbalizes understanding. Follow-up care arranged. Written instructions given to patient/family. MARY SAGASTUME
== END 2019-12-30 11:00 | disposition home or self-care (01) ==
LOC: ED 10:11 → 4E 12:20 → EDHOLD 12:20 → 4E 12:45
PROVIDERS: Emergency Medicine; Family Medicine; ADMIT Internal Medicine; ATTEND Internal Medicine
DX: R42 Dizziness and giddiness (principal); N17.0 Acute kidney failure with tubular necrosis; E87.1 Hypo-osmolality and hyponatremia; R73.9 Hyperglycemia, unspecified; I10 Essential (primary) hypertension; E78.5 Hyperlipidemia, unspecified; G43.909 Migraine, unspecified, not intractable, without status migrainosus; F17.210 Nicotine dependence, cigarettes, uncomplicated

== ENCOUNTER 2020-07-04 11:04 | Emergency (ER) | payer OTHER ==
[~2020-07-04] VITALS: Ht 175.2 cm; Wt 77.1 kg
[~2020-07-04 11:04] MED LIST changes: +BUSPAR15 MG PO; +CIPROFLOXACIN250 MG PO; +LEVOCETIRIZINE D5 M1 PO; +LEVOFLOXACIN500 MG PO; +MECLIZINE HCL25 M2 PO; +NICODERM CQ1 EAC2 T; +SIMVASTATIN40 MG PO; +TAMSULOSIN HCL0.4 MG PO
[2020-07-04 12:01] LABS: BILIRUBIN Negative (Negative); BLOOD 1+ (Negative); CLARITY Clear (Clear); COLOR Yellow (Yellow); GLUCOSE Negative (Negative); KETONE Negative (Negative); LEUKO ESTERASE 3+ (Negative); NITRITE Positive (Negative); PH 6.5 (4.5-8.0); SPECIFIC GRAVITY <= 1.005 (1.001-1.030); UROBILINOGEN 0.2 E.U./dl (0.0-1.0)
[2020-07-04 12:20] LABS: BACTERIA TRACE; RBC 0-2 rbc/hpf (0-2); WBC 51-100 wbc/hpf (0-5)
[2020-07-04 13:10] LABS: BASO # 0.1 10*3/uL (0.0-0.1); BASO % 0.5 % (0.0-1.0); EOS # 0.2 10*3/uL (0.0-0.4); HEMATOCRIT 46.5 % (42.0-52.0); LYMPH # 1.3 10*3/uL (1.3-4.4); LYMPH % 7.5 % (27.0-41.0); MEAN CORPUSCULAR HGB 28.7 pg (27.0-31.0); MEAN CORPUSCULAR HGB CONC 33.8 g/dl (33.0-37.0); MEAN PLATELET VOLUME 9.1 fl (9.6-12.3); MONO # 1.1 10*3/uL (0.1-1.0); MONO % 6.4 % (3.0-9.0); NEUT # 14.5 10*3/uL (2.3-7.9); NEUT % 84.3 % (47.0-73.0); PLATELET COUNT AUTOMATED 273 10*3/uL (130-400); RED BLOOD COUNT 5.47 10*6/uL (4.50-5.90); RED CELL DISTRI WIDTH 13.1 % (0-14.5); WHITE BLOOD COUNT 17.2 10*3/uL (4.8-10.8)
[2020-07-04 13:25] LABS: ALBUMIN 3.7 gm/dl (3.1-4.5); ALKALINE PHOSPHATASE 77 U/L (45-117); BUN 23 mg/dl (7-24); CHLORIDE 107 mmol/L (98-107); CREATININE 1.17 mg/dL (0.70-1.30); LIPASE 85 U/L (73-393); SGOT/AST 8 IU/L (3-35); SGPT/ALT 21 U/L (12-78); SODIUM 138 mmol/L (136-145); TOTAL PROTEIN 7.3 gm/dL (6.4-8.2)
== END 2020-07-04 18:30 | disposition short-term general hospital (02) ==
LOC: ED 11:04
PROVIDERS: Family Medicine; Physician Assistant
DX: N20.1 Calculus of ureter (principal); N39.0 Urinary tract infection, site not specified; I10 Essential (primary) hypertension; K21.9 Gastro-esophageal reflux disease without esophagitis; G43.909 Migraine, unspecified, not intractable, without status migrainosus; F17.200 Nicotine dependence, unspecified, uncomplicated; Z88.8 Allergy status to other drugs, medicaments and biological substances; Z79.899 Other long term (current) drug therapy; Z98.890 Other specified postprocedural states

== ENCOUNTER → 2020-08-08 | Outpatient (CLI) | payer OTHER ==
[2020-08-08 14:57] LABS: BASO # 0.1 10*3/uL (0.0-0.1); BASO % 0.6 % (0.0-1.0); EOS # 0.2 10*3/uL (0.0-0.4); EOS % 2.5 % (1.0-4.0); HEMATOCRIT 44.4 % (42.0-52.0); LYMPH % 22.7 % (27.0-41.0); MEAN CELL VOLUME 86.4 fl (80.0-94.0); MEAN CORPUSCULAR HGB 28.8 pg (27.0-31.0); MEAN CORPUSCULAR HGB CONC 33.3 g/dl (33.0-37.0); MEAN PLATELET VOLUME 9.2 fl (9.6-12.3); MONO # 0.8 10*3/uL (0.1-1.0); MONO % 9.5 % (3.0-9.0); NEUT # 5.6 10*3/uL (2.3-7.9); NEUT % 64.2 % (47.0-73.0); PLATELET COUNT AUTOMATED 228 10*3/uL (130-400); RED BLOOD COUNT 5.14 10*6/uL (4.50-5.90); RED CELL DISTRI WIDTH 13.2 % (0-14.5); WHITE BLOOD COUNT 8.7 10*3/uL (4.8-10.8)
[2020-08-08 15:04] LABS: BILIRUBIN Negative (Negative); BLOOD Negative (Negative); CLARITY Clear (Clear); COLOR Yellow (Yellow); GLUCOSE Negative (Negative); KETONE Negative (Negative); LEUKO ESTERASE Trace (Negative); NITRITE Negative (Negative); UROBILINOGEN 0.2 E.U./dl (0.0-1.0)
[2020-08-08 15:14] LABS: BACTERIA TRACE; EPITHELIAL CELLS 0-2; RBC 0-2 rbc/hpf (0-2)
[2020-08-08 15:26] LABS: ALBUMIN 3.7 gm/dl (3.1-4.5); ALKALINE PHOSPHATASE 74 U/L (45-117); BUN 22 mg/dl (7-24); CHLORIDE 109 mmol/L (98-107); CREATININE 1.32 mg/dL (0.70-1.30); POTASSIUM 3.8 mmol/L (3.5-5.1); SGOT/AST 11 IU/L (3-35); SGPT/ALT 25 U/L (12-78); SODIUM 138 mmol/L (136-145); T3 UPTAKE 35 % (31-39); THYROXINE (T4) TOTAL 9.6 ug/dl (4.5-12.1); TOTAL PROTEIN 7.5 gm/dL (6.4-8.2)
== END | disposition home or self-care (01) ==
LOC: US 14:13
PROVIDERS: ATTEND Urology
DX: N20.0 Calculus of kidney (principal); N32.89 Other specified disorders of bladder; E83.50 Unspecified disorder of calcium metabolism; R31.9 Hematuria, unspecified

== ENCOUNTER → 2020-08-26 | Outpatient (CLI) | payer OTHER ==
[2020-09-07 00:06] LABS: BUSHITE 4.95 ratio (0.00-3.00); CALCIUM OXALATE 4.32 ratio (0.00-6.00); CALCIUM, URINE 12.3 mg/dL (Not Estab.); CALCIUM, URINE 295.2 mg/24 hr (100.0-300.0); CITRIC ACID (CITRATE) 230 mg/24 hr (320-1240); CREATININE, URINE 1483.2 mg/24 hr (1000.0-2000.0); CREATININE, URINE 61.8 mg/dL (Not Estab.); MAGNESIUM, URINE 5.2 mg/dL (Not Estab.); MONOSODIUM URATE 2.41 ratio (0.00-4.00); OSMOLALITY, URINE 416 (300-900); SODIUM, URINE 101 mmol/L (Not Estab.); SODIUM, URINE 242 (58-337); STRUVITE 0.19 ratio (0.00-1.00); URIC ACID 0.15 ratio (0.00-1.20); pH 24 HR URINE 6.8 (.)
== END | disposition home or self-care (01) ==
LOC: LAB 15:08
PROVIDERS: ATTEND Urology
DX: N20.0 Calculus of kidney (principal); R31.9 Hematuria, unspecified

== ENCOUNTER 2021-01-18 10:46 | Emergency (ER) | payer OTHER ==
[~2021-01-18] VITALS: Ht 175.2 cm
[2021-01-18 17:19] LABS: BASO # 0.1 10*3/uL (0.0-0.1); BASO % 0.6 % (0.0-1.0); EOS # 0.3 10*3/uL (0.0-0.4); EOS % 4.1 % (1.0-4.0); LYMPH # 1.9 10*3/uL (1.3-4.4); LYMPH % 22.7 % (27.0-41.0); MEAN CELL VOLUME 87.1 fl (80.0-94.0); MEAN CORPUSCULAR HGB 29.5 pg (27.0-31.0); MEAN CORPUSCULAR HGB CONC 33.8 g/dl (33.0-37.0); MEAN PLATELET VOLUME 9.2 fl (9.6-12.3); MONO # 0.8 10*3/uL (0.1-1.0); MONO % 9.3 % (3.0-9.0); NEUT # 5.2 10*3/uL (2.3-7.9); NEUT % 62.7 % (47.0-73.0); PLATELET COUNT AUTOMATED 235 10*3/uL (130-400); RED BLOOD COUNT 5.97 10*6/uL (4.50-5.90); RED CELL DISTRI WIDTH 12.7 % (0-14.5); WHITE BLOOD COUNT 8.3 10*3/uL (4.8-10.8)
[2021-01-18 17:36] LABS: ALBUMIN 4.2 gm/dl (3.1-4.5); ALKALINE PHOSPHATASE 83 U/L (45-117); BUN 18 mg/dl (7-24); CHLORIDE 104 mmol/L (98-107); CREATININE 1.17 mg/dL (0.70-1.30); SGOT/AST 17 IU/L (3-35); SGPT/ALT 29 U/L (12-78); SODIUM 136 mmol/L (136-145)
[2021-01-18] MEDS ORDERED: Motrin,Rufen800 MG PO (18:20)
[2021-01-18] MEDS ORDERED: HYDROCODONE-AC1 EAC1 PO (18:20)
[2021-01-19] MEDS ORDERED: NEURONTIN100 MG PO (15:36)
[2021-01-19] MEDS ORDERED: NAPROXEN250 MG PO (15:36)
[2021-01-19] MEDS ORDERED: TYLENOL325 M1 PO (15:36)
== END 2021-01-18 18:45 | disposition home or self-care (01) ==
LOC: ED 10:46
PROVIDERS: Emergency Medicine
DX: M79.672 Pain in left foot (principal); M79.671 Pain in right foot; Z88.8 Allergy status to other drugs, medicaments and biological substances; Z79.899 Other long term (current) drug therapy

== ENCOUNTER → 2021-04-21 | Outpatient (CLI) | payer OTHER ==
[~2021-04-21] MED LIST changes: +HYDROCODONE-AC1 EAC1 PO; +NAPROXEN250 MG PO; +NEURONTIN100 MG PO; +TYLENOL325 M1 PO
[2021-04-21 10:44] LABS: BASO % 0.6 % (0.0-1.0); EOS # 0.1 10*3/uL (0.0-0.4); EOS % 1.7 % (1.0-4.0); HEMATOCRIT 48.1 % (42.0-52.0); LYMPH # 1.7 10*3/uL (1.3-4.4); LYMPH % 23.5 % (27.0-41.0); MEAN CELL VOLUME 86.7 fl (80.0-94.0); MEAN CORPUSCULAR HGB 29.7 pg (27.0-31.0); MEAN CORPUSCULAR HGB CONC 34.3 g/dl (33.0-37.0); MEAN PLATELET VOLUME 9.2 fl (9.6-12.3); MONO # 0.7 10*3/uL (0.1-1.0); MONO % 9.4 % (3.0-9.0); NEUT # 4.6 10*3/uL (2.3-7.9); NEUT % 64.2 % (47.0-73.0); PLATELET COUNT AUTOMATED 219 10*3/uL (130-400); RED BLOOD COUNT 5.55 10*6/uL (4.50-5.90); RED CELL DISTRI WIDTH 12.6 % (0-14.5); WHITE BLOOD COUNT 7.2 10*3/uL (4.8-10.8)
[2021-04-21 11:00] LABS: ALBUMIN 3.7 gm/dl (3.1-4.5); ALKALINE PHOSPHATASE 76 U/L (45-117); BUN 14 mg/dl (7-24); CHLORIDE 108 mmol/L (98-107); CHOLESTEROL 161 mg/dL (<200); CREATININE 1.23 mg/dL (0.70-1.30); LDL CHOLESTEROL 95 mg/dL (9-159); SGOT/AST 11 IU/L (3-35); SGPT/ALT 22 U/L (12-78); SODIUM 138 mmol/L (136-145); TOTAL PROTEIN 6.9 gm/dL (6.4-8.2); TRIGLYCERIDES 116 mg/dl (<150)
== END | disposition home or self-care (01) ==
LOC: LAB 10:19
PROVIDERS: ATTEND Family Medicine
DX: I10 Essential (primary) hypertension (principal); F41.9 Anxiety disorder, unspecified; F43.21 Adjustment disorder with depressed mood; Z13.9 Encounter for screening, unspecified; Z13.6 Encounter for screening for cardiovascular disorders

== ENCOUNTER 2021-07-13 10:18 | Emergency (ER) | payer OTHER ==
[~2021-07-13] VITALS: Ht 175.2 cm; Wt 81.6 kg
== END 2021-07-13 11:13 | disposition home or self-care (01) ==
LOC: ED 10:18
DX: R42 Dizziness and giddiness (principal); I10 Essential (primary) hypertension; G43.909 Migraine, unspecified, not intractable, without status migrainosus; F17.210 Nicotine dependence, cigarettes, uncomplicated; E78.5 Hyperlipidemia, unspecified; Z88.8 Allergy status to other drugs, medicaments and biological substances; Z79.899 Other long term (current) drug therapy; Z98.890 Other specified postprocedural states

== ENCOUNTER → 2021-10-02 | Outpatient (CLI) | payer OTHER ==
[2021-10-02 15:49] LABS: CREATININE 1.32 mg/dL (0.70-1.30)
== END | disposition home or self-care (01) ==
LOC: MRI 15:00 → LAB 15:11
PROVIDERS: Radiology Diagnostic Radiology; ATTEND Family Medicine
DX: I67.82 Cerebral ischemia (principal); G43.709 Chronic migraine without aura, not intractable, without status migrainosus

== ENCOUNTER → 2021-10-03 | Outpatient (CLI) | payer OTHER | LOC: US 01:33 | PROVIDERS: ATTEND Family Medicine | DX: I65.23 Occlusion and stenosis of bilateral carotid arteries (principal); R09.89 Other specified symptoms and signs involving the circulatory and respiratory systems; I70.203 Unspecified atherosclerosis of native arteries of extremities, bilateral legs ==

== ENCOUNTER 2021-11-09 19:01 | Emergency (ER) | payer OTHER ==
[~2021-11-09] VITALS: Ht 175.2 cm; Wt 821.0 kg
== END 2021-11-09 23:14 | disposition home or self-care (01) ==
LOC: ED 19:01
DX: S61.211A Laceration without foreign body of left index finger without damage to nail, initial encounter (principal); Z88.8 Allergy status to other drugs, medicaments and biological substances; Z79.899 Other long term (current) drug therapy; Z98.890 Other specified postprocedural states; W45.8XXA Other foreign body or object entering through skin, initial encounter; Y93.89 Activity, other specified; Y92.89 Other specified places as the place of occurrence of the external cause; Y99.8 Other external cause status

== ENCOUNTER 2021-11-28 15:19 | Emergency (ER) | payer OTHER ==
[~2021-11-28] VITALS: Ht 177.8 cm; Wt 81.6 kg
[2021-11-28] MEDS ORDERED: CLARITIN10 MG PO (17:53)
== END 2021-11-28 18:01 | disposition home or self-care (01) ==
LOC: ED 15:19
DX: H00.015 Hordeolum externum left lower eyelid (principal); Z88.8 Allergy status to other drugs, medicaments and biological substances; Z79.899 Other long term (current) drug therapy; Z98.890 Other specified postprocedural states; Z87.891 Personal history of nicotine dependence

== ENCOUNTER 2021-12-11 19:01 | Emergency (ER) | payer OTHER ==
[~2021-12-11] VITALS: Ht 177.8 cm; Wt 81.6 kg
[2021-12-11] MEDS ORDERED: AMOX-CLAV 875-1 EACH PO (22:16)
== END 2021-12-11 22:28 | disposition home or self-care (01) ==
LOC: ED 19:01
DX: J32.8 Other chronic sinusitis (principal); Z88.8 Allergy status to other drugs, medicaments and biological substances; Z79.899 Other long term (current) drug therapy; Z98.890 Other specified postprocedural states; Z87.891 Personal history of nicotine dependence

== ENCOUNTER 2022-04-08 09:48 | Emergency (ER) | payer OTHER ==
[~2022-04-08] VITALS: Ht 177.8 cm; Wt 83.9 kg
[~2022-04-08 09:48] MED LIST changes: +AMOX-CLAV 875-1 EACH PO
[2022-04-08] MEDS ORDERED: IBUPROFEN600 MG PO (14:10)
[2022-04-08] MEDS ORDERED: CORTISPORIN SUS10 ML OT (14:10)
[2022-04-08] MEDS ORDERED: AMOXICILLIN500 M2 PO (14:10)
== END 2022-04-08 14:20 | disposition home or self-care (01) ==
LOC: ED 09:48
DX: H66.91 Otitis media, unspecified, right ear (principal); H60.91 Unspecified otitis externa, right ear; Z88.8 Allergy status to other drugs, medicaments and biological substances; Z79.899 Other long term (current) drug therapy; Z87.891 Personal history of nicotine dependence; Z98.890 Other specified postprocedural states

== ENCOUNTER → 2022-04-23 | Outpatient (CLI) | payer OTHER ==
[~2022-04-23] MED LIST changes: +AMOXICILLIN500 M2 PO; +CORTISPORIN SUS10 ML OT; +IBUPROFEN600 MG PO
== END | disposition home or self-care (01) ==
LOC: CARD 07:30
PROVIDERS: ATTEND Internal Medicine Cardiovascular Disease
DX: I34.1 Nonrheumatic mitral (valve) prolapse (principal); I51.7 Cardiomegaly

== ENCOUNTER → 2022-06-07 | Outpatient (CLI) | payer OTHER ==
[~2022-06-07] MED LIST changes: +FLONASE ALLERG9.9 ML NAS
== END | disposition home or self-care (01) ==
LOC: RAD 08:35
PROVIDERS: ATTEND Family Medicine
DX: M79.632 Pain in left forearm (principal); W00.9XXA Unspecified fall due to ice and snow, initial encounter

== ENCOUNTER → 2022-06-21 | Outpatient (CLI) | payer OTHER ==
[2022-06-21 08:46] LABS: BASO % 0.4 % (0.0-1.0); EOS # 0.1 10*3/uL (0.0-0.4); EOS % 1.8 % (1.0-4.0); HEMATOCRIT 51.8 % (42.0-52.0); LYMPH # 1.3 10*3/uL (1.3-4.4); LYMPH % 18.4 % (27.0-41.0); MEAN CELL VOLUME 85.2 fl (80.0-94.0); MEAN CORPUSCULAR HGB 28.8 pg (27.0-31.0); MEAN CORPUSCULAR HGB CONC 33.8 g/dl (33.0-37.0); MEAN PLATELET VOLUME 9.3 fl (9.6-12.3); MONO # 0.7 10*3/uL (0.1-1.0); MONO % 9.2 % (3.0-9.0); NEUT % 70.1 % (47.0-73.0); PLATELET COUNT AUTOMATED 213 10*3/uL (130-400); RED BLOOD COUNT 6.08 10*6/uL (4.50-5.90); WHITE BLOOD COUNT 7.2 10*3/uL (4.8-10.8)
[2022-06-21 09:27] LABS: ALKALINE PHOSPHATASE 81 U/L (46-116); BUN 15 mg/dl (9-23); CHLORIDE 108 mmol/L (98-107); CHOLESTEROL 148 mg/dL (<200); LDL CHOLESTEROL 80 mg/dL (9-159); POTASSIUM 4.2 mmol/L (3.4-5.1); SGPT/ALT 16 U/L (10-49); TOTAL PROTEIN 7.2 gm/dL (6.0-8.0); TRIGLYCERIDES 149 mg/dl (<150)
== END | disposition home or self-care (01) ==
LOC: LAB 08:32
PROVIDERS: ATTEND Student in an Organized Health Care Education/Training Program
DX: I10 Essential (primary) hypertension (principal); E78.5 Hyperlipidemia, unspecified; E11.42 Type 2 diabetes mellitus with diabetic polyneuropathy

== ENCOUNTER → 2022-07-09 | Outpatient (CLI) | payer OTHER | END | disposition home or self-care (01) | LOC: CT 09:21 | PROVIDERS: ATTEND Family Medicine | DX: J32.9 Chronic sinusitis, unspecified (principal); R42 Dizziness and giddiness; R04.0 Epistaxis ==

== ENCOUNTER → 2023-02-04 | Outpatient (CLI) | payer OTHER ==
[~2023-02-04] MED LIST changes: +DRAMAMINE25 M4 PO; +GABAPENTIN100 M2 PO; +PROPRANOLOL HCL20 MG PO
== END | disposition home or self-care (01) ==
LOC: CT 13:00
PROVIDERS: ATTEND Internal Medicine
DX: J43.9 Emphysema, unspecified (principal); J84.10 Pulmonary fibrosis, unspecified; R91.8 Other nonspecific abnormal finding of lung field; Z87.891 Personal history of nicotine dependence

== ENCOUNTER 2023-06-19 11:18 | Emergency (ER) | payer OTHER ==
[~2023-06-19] VITALS: Ht 175.2 cm; Wt 81.6 kg
[2023-06-19] MEDS ORDERED: SODIUM CHLORIDE 0.9% 1,000 ML IV ONE (11:30)
[2023-06-19] MEDS ORDERED: DIAZEPAM 5 MG TAB PO ONE (11:30)
[2023-06-19] MEDS ORDERED: Meclizine Hydrochloride 25 MG TAB PO ONE (11:30)
[2023-06-19 12:07] LABS: BASO % 0.5 % (0.0-1.0); EOS # 0.4 10*3/uL (0.0-0.4); EOS % 4.8 % (1.0-4.0); HEMATOCRIT 52.7 % (42.0-52.0); LYMPH # 1.7 10*3/uL (1.3-4.4); LYMPH % 20.9 % (27.0-41.0); MEAN CELL VOLUME 88.6 fl (80.0-94.0); MEAN CORPUSCULAR HGB 29.2 pg (27.0-31.0); MONO # 0.8 10*3/uL (0.1-1.0); MONO % 9.2 % (3.0-9.0); NEUT # 5.3 10*3/uL (2.3-7.9); NEUT % 64.2 % (47.0-73.0); PLATELET COUNT AUTOMATED 225 10*3/uL (130-400); RED BLOOD COUNT 5.95 10*6/uL (4.50-5.90); RED CELL DISTRI WIDTH 13.5 % (0-14.5); WHITE BLOOD COUNT 8.3 10*3/uL (4.8-10.8)
[2023-06-19 12:33] LABS: ALKALINE PHOSPHATASE 96 U/L (46-116); BUN 13 mg/dl (9-23); CHLORIDE 108 mmol/L (98-107); POTASSIUM 4.5 mmol/L (3.4-5.1); SGPT/ALT 15 U/L (5-49); TOTAL PROTEIN 7.2 gm/dL (6.0-8.0)
[2023-06-19] MEDS ORDERED: ANTIVERT25 M2 PO (13:00)
[2023-06-19] MEDS ORDERED: AVPAK AZITHROM250 M1 PO (13:00)
[2023-06-19] MEDS ORDERED: TRAMADOL HCL50 MG PO (13:59)
== END 2023-06-19 13:48 | disposition home or self-care (01) ==
LOC: ED 11:18
PROVIDERS: Emergency Medicine
DX: J32.9 Chronic sinusitis, unspecified (principal); R42 Dizziness and giddiness; I10 Essential (primary) hypertension; Z88.8 Allergy status to other drugs, medicaments and biological substances; Z98.890 Other specified postprocedural states; F17.200 Nicotine dependence, unspecified, uncomplicated